=== PATIENT | female | born 1950 | race Caucasian/White ===

== ENCOUNTER 2018-03-24 08:38 | Day surgery (SDC) | payer MEDICARE ==
[~2018-03-24 08:38] MED LIST: EZETIMIBE; INVOKANA300 MG; JANUVIA100 MG PO; SIMVA; TIZANIDINE HCL4 M1 PO; VENLAFAXINE HC100 MG PO
[2018-03-24 11:27] VITALS: BP 171/79
== END 2018-03-24 11:45 | disposition home or self-care (01) ==
LOC: ORM 08:38
PROVIDERS: ATTEND Anesthesiology Pain Medicine
PROC: 3E0U33Z Introduction of Anti-inflammatory into Joints, Percutaneous Approach (ICD-10-PCS; principal; 2018-03-24)
PROC: 3E0U3BZ Introduction of Anesthetic Agent into Joints, Percutaneous Approach (ICD-10-PCS; 2018-03-24)
DX: M54.6 Pain in thoracic spine (principal)

== ENCOUNTER 2018-05-12 06:07 | Day surgery (SDC) | payer MEDICARE ==
[2018-05-12 07:45] VITALS: BP 145/66
== END 2018-05-12 08:10 | disposition home or self-care (01) ==
LOC: ORM 06:07
PROVIDERS: ATTEND Anesthesiology Pain Medicine
PROC: 3E0T33Z Introduction of Anti-inflammatory into Peripheral Nerves and Plexi, Percutaneous Approach (ICD-10-PCS; principal; 2018-05-12)
PROC: 3E0T3BZ Introduction of Anesthetic Agent into Peripheral Nerves and Plexi, Percutaneous Approach (ICD-10-PCS; 2018-05-12)
DX: M46.94 Unspecified inflammatory spondylopathy, thoracic region (principal); M54.6 Pain in thoracic spine

== ENCOUNTER 2018-06-09 06:22 | Day surgery (SDC) | payer MEDICARE ==
[2018-06-09 11:47] VITALS: BP 143/65
== END 2018-06-09 08:48 | disposition home or self-care (01) ==
LOC: ORM 06:22
PROVIDERS: ATTEND Anesthesiology Pain Medicine
PROC: 3E0T3TZ Introduction of Destructive Agent into Peripheral Nerves and Plexi, Percutaneous Approach (ICD-10-PCS; principal; 2018-06-09)
DX: M54.6 Pain in thoracic spine (principal); M12.9 Arthropathy, unspecified

== ENCOUNTER 2018-07-05 09:31 | Emergency (ER) | payer MEDICARE ==
[~2018-07-05] VITALS: Ht 160 cm; Wt 65.0 kg
[2018-07-05] MEDS ORDERED: NABUMETONE500 MG PO (10:03)
[2018-07-05] MEDS ORDERED: VYTORIN1 TA1 PO (10:05)
[2018-07-05] MEDS ORDERED: GLIPIZIDE10 M2 PO (10:07)
[2018-07-05 11:14] LABS: URINE BILIRUBIN - DIPSTICK NEGATIVE (NEGATIVE); URINE BLOOD DIPSTICK TRACE-INTACT (NEGATIVE); URINE COLOR YELLOW; URINE GLUCOSE - DIPSTICK >=1000 mg/dL (NEGATIVE); URINE KETONE NEGATIVE (NEGATIVE); URINE LEUK ESTERASE NEGATIVE (NEGATIVE); URINE NITRITE - DIPSTICK NEGATIVE (Negative); URINE PH 5.5 (4.5-8.0); URINE PROTEIN - DIPSTICK NEGATIVE (NEG-TRACE); URINE SPECIFIC GRAVITY 1.025; URINE UROBILINOGEN - DIPSTICK 0.2 E.U./dL (0.2)
[2018-07-05 11:21] LABS: URINE CLARITY CLEAR
[2018-07-05] MEDS ORDERED: PYRIDIUM200 MG PO (11:30)
[2018-07-05] MEDS ORDERED: BACTRIM DS1 TAB PO (11:30)
[2018-07-05 11:34] VITALS: BP 143/85
== END 2018-07-05 11:34 | disposition home or self-care (01) ==
LOC: ED 09:31
PROVIDERS: Emergency Medicine
DX: N34.2 Other urethritis (principal); E11.51 Type 2 diabetes mellitus with diabetic peripheral angiopathy without gangrene; F17.210 Nicotine dependence, cigarettes, uncomplicated

== ENCOUNTER 2019-05-03 18:13 | Emergency (ER) | payer MEDICARE ==
[~2019-05-03] VITALS: Ht 160 cm; Wt 65.0 kg
[~2019-05-03 18:13] MED LIST changes: +BACTRIM DS1 TAB PO; +GLIPIZIDE10 M2 PO; +NABUMETONE500 MG PO; +PYRIDIUM200 MG PO; +VYTORIN1 TA1 PO
[2019-05-03 18:46] LABS: HEMATOCRIT 41.8 % (37.0-47.0); HEMOGLOBIN 12.7 g/dl (12.0-16.0); IMMATURE GRANULOCYTES 0.3 % (0.0-5.0); MEAN CELL VOLUME 86.5 fL CALC (80.0-100.0); MEAN CORPUSCULAR HGB 26.3 pG CALC (26.0-32.0); MEAN CORPUSCULAR HGB CONC 30.4 g/L CALC (32.0-36.0); NEUT# 6.12 thou/uL (2.00-7.15); RED BLOOD COUNT 4.83 mill/uL (4.20-5.60); RED CELL DISTRI WIDTH 15.7 % (11.5-15.5)
[2019-05-03 19:04] LABS: ALBUMIN 4.3 g/dL (3.2-5.0); ALKALINE PHOSPHATASE 146 u/l (38-126); ANION GAP 15 (6-22 (CALC)); BILIRUBIN, TOTAL 0.4 mg/dL (0.0-1.4); BUN 24 mg/dL (8-23); BUN/CREATININE RATIO 26 (12-20 (CALC)); CARBON DIOXIDE 23 mmol/l (22-30); CHLORIDE 102 mmol/l (95-108); CREATININE 0.9 mg/dL (0.5-1.0); GFR > 60 ML/MIN (>=60 (CALC)); GFR FOR AFR.AMER. > 60 ML/MIN (>=60 (CALC)); LIPASE 164 u/l (23-300); POTASSIUM 4.6 mmol/l (3.5-5.1); SGOT/AST 48 u/l (9-36); SODIUM 135 mmol/l (137-146); TOTAL PROTEIN 7.8 g/dL (6.3-8.2)
[2019-05-03 23:12] LABS: URINE BILIRUBIN - DIPSTICK NEGATIVE (NEGATIVE); URINE BLOOD DIPSTICK MODERATE (NEGATIVE); URINE COLOR YELLOW; URINE GLUCOSE - DIPSTICK NEGATIVE (NEGATIVE); URINE KETONE NEGATIVE (NEGATIVE); URINE LEUK ESTERASE NEGATIVE (NEGATIVE); URINE NITRITE - DIPSTICK NEGATIVE (Negative); URINE PH 5.5 (4.5-8.0); URINE PROTEIN - DIPSTICK NEGATIVE (NEG-TRACE); URINE SPECIFIC GRAVITY <=1.005; URINE UROBILINOGEN - DIPSTICK 0.2 E.U./dL (0.2)
[2019-05-03 23:23] LABS: URINE BACTERIA RARE hpf; URINE WBC 0-2 WBC/hpf (0-5)
[2019-05-03] MEDS ORDERED: ULTRAM50 M1 PO (23:29)
[2019-05-03] MEDS ORDERED: CEPHALEXIN500 M1 PO (23:29)
[2019-05-03 23:40] VITALS: BP 163/68
== END 2019-05-03 23:40 | disposition home or self-care (01) ==
LOC: ED 18:13
PROVIDERS: Emergency Medicine
DX: R10.13 Epigastric pain (principal); N39.0 Urinary tract infection, site not specified; E11.9 Type 2 diabetes mellitus without complications; F17.210 Nicotine dependence, cigarettes, uncomplicated
CPT/HCPCS: Q9967

== ENCOUNTER 2019-06-10 08:13 | Day surgery (SDC) | payer MEDICARE ==
[~2019-06-10] VITALS: Ht 160 cm; Wt 65.8 kg
[~2019-06-10 08:13] MED LIST changes: +ALENDRONATE SOD70 MG PO; +BENZONATATE200 MG PO; +CEPHALEXIN500 M1 PO; +DEBROX6.5 % OT; +HYDROCHLOROT25 MG PO; +INVOKANA300 MG PO; +LEVEMIR FL100 UNIT/M SC; +LEVOTHYROXIN50 MCG PO; +LISINOPRIL2.5 MG PO; +LOPID600 MG PO; +NORVASC10 M1 PO; +OMEPRAZOLE20 MG PO; +SERTRALINE100 MG PO; +ULTRAM50 M1 PO; +ZADITOR0.025 % OU
[2019-06-10] MEDS ORDERED: ALEVE220 M1 PO (08:27)
[2019-06-10] MEDS ORDERED: PERCOCET 10/31 COMBO PO (11:21)
[2019-06-10 12:18] VITALS: BP 118/58
== END 2019-06-10 12:50 | disposition home or self-care (01) ==
LOC: ORM 08:13
PROVIDERS: ATTEND Urology
PROC: 0TBB8ZX Excision of Bladder, Via Natural or Artificial Opening Endoscopic, Diagnostic (ICD-10-PCS; principal; 2019-06-10)
PROC: 0T9780Z Drainage of Left Ureter with Drainage Device, Via Natural or Artificial Opening Endoscopic (ICD-10-PCS; 2019-06-10)
DX: C67.8 Malignant neoplasm of overlapping sites of bladder (principal); C67.1 Malignant neoplasm of dome of bladder; C79.89 Secondary malignant neoplasm of other specified sites; F17.210 Nicotine dependence, cigarettes, uncomplicated; E11.9 Type 2 diabetes mellitus without complications; I10 Essential (primary) hypertension; Z85.3 Personal history of malignant neoplasm of breast
CPT/HCPCS: C1769; J0131; J2710; Q9967

== ENCOUNTER 2019-08-03 11:20 | Emergency (ER) | payer MEDICARE ==
[~2019-08-03] VITALS: Ht 160 cm; Wt 61.0 kg
[~2019-08-03 11:20] MED LIST changes: +ALEVE220 M1 PO; +PERCOCET 10/31 COMBO PO
[2019-08-03 11:55] LABS: HEMATOCRIT 32.3 % (37.0-47.0); HEMOGLOBIN 9.7 g/dl (12.0-16.0); MEAN CELL VOLUME 90.2 fL CALC (80.0-100.0); MEAN CORPUSCULAR HGB 27.1 pG CALC (26.0-32.0); RED BLOOD COUNT 3.58 mill/uL (4.20-5.60); RED CELL DISTRI WIDTH 20.6 % (11.5-15.5)
[2019-08-03 12:03] VITALS: BP 113/56
[2019-08-03 12:10] LABS: PROTHROMBIN TIME 10.7 SECONDS (9.0-12.5)
[2019-08-03 12:14] LABS: CREATININE 1.6 mg/dL (0.5-1.0); POTASSIUM 4.3 mmol/l (3.5-5.1); TOTAL PROTEIN 7.9 g/dL (6.3-8.2)
[2019-08-03 12:15] LABS: BILIRUBIN, TOTAL 0.6 mg/dL (0.0-1.4)
[2019-08-03 12:17] LABS: IMMATURE GRANULOCYTES 12.7 % (0.0-5.0); PLATELET COUNT 620 thou/uL (130-400)
[2019-08-03 12:18] LABS: MANUAL DIFFERENTIAL YES
[2019-08-03 12:26] LABS: BAND 14 % (0-8)
[2019-08-03 12:27] LABS: POLYCHROMASIA FEW
[2019-08-03 12:28] LABS: PLATELET ESTIMATE MOD INCREASE
== END 2019-08-03 12:03 | disposition short-term general hospital (02) ==
LOC: ED 11:20
PROVIDERS: Family Medicine
DX: I63.9 Cerebral infarction, unspecified (principal); R27.0 Ataxia, unspecified; R53.1 Weakness; R29.708 NIHSS score 8; I10 Essential (primary) hypertension; E11.9 Type 2 diabetes mellitus without complications; F17.200 Nicotine dependence, unspecified, uncomplicated; Z79.4 Long term (current) use of insulin
CPT/HCPCS: J2997

== ENCOUNTER 2019-12-01 | Emergency (ER) | payer MEDICARE ==
[2019-12-01 14:08] LABS: URINE BILIRUBIN - DIPSTICK NEGATIVE (NEGATIVE); URINE BLOOD DIPSTICK MODERATE (NEGATIVE); URINE COLOR YELLOW; URINE GLUCOSE - DIPSTICK NEGATIVE (NEGATIVE); URINE KETONE NEGATIVE (NEGATIVE); URINE LEUK ESTERASE TRACE (NEGATIVE); URINE NITRITE - DIPSTICK NEGATIVE (Negative); URINE PH 5.5 (4.5-8.0); URINE PROTEIN - DIPSTICK 30 mg/dL (NEG-TRACE); URINE SPECIFIC GRAVITY 1.025; URINE UROBILINOGEN - DIPSTICK 0.2 E.U./dL (0.2)
[2019-12-01 14:38] LABS: HEMOGLOBIN 9.5 g/dl (12.0-16.0); IMMATURE GRANULOCYTES 1.1 % (0.0-5.0); MEAN CELL VOLUME 91.4 fL CALC (80.0-100.0); MEAN CORPUSCULAR HGB CONC 30.6 g/dL CAL (32.0-36.0); NEUT# 10.07 thou/uL (2.00-7.15); RED BLOOD COUNT 3.39 mill/uL (4.20-5.60); RED CELL DISTRI WIDTH 18.4 % (11.5-15.5)
[2019-12-01 14:54] LABS: URINE RBC 25-50 RBC/hpf (0-5); URINE SQUAMOUS EPITHELIAL CELL FEW EPI/hpf (0-FEW)
[2019-12-01 14:59] LABS: BILIRUBIN, TOTAL 0.8 mg/dL (0.0-1.4); CREATININE 4.2 mg/dL (0.5-1.0); POTASSIUM 5.1 mmol/l (3.5-5.1); TOTAL PROTEIN 7.4 g/dL (6.3-8.2)
== END 2019-12-01 16:05 | disposition left against medical advice (07) ==
PROVIDERS: Family Medicine
DX: I12.0 Hypertensive chronic kidney disease with stage 5 chronic kidney disease or end stage renal disease (principal); E11.22 Type 2 diabetes mellitus with diabetic chronic kidney disease; N18.6 End stage renal disease; F17.210 Nicotine dependence, cigarettes, uncomplicated; Z91.19 Patient's noncompliance with other medical treatment and regimen; Z79.4 Long term (current) use of insulin

== ENCOUNTER 2020-12-17 11:08 | Observation (INO) | payer MEDICARE ==
[~2020-12-17] VITALS: Ht 160 cm; Wt 44.0 kg
--- NOTE | 2020-12-17 11:22 | NUR ---
PATIENT ADMITTED FROM DR. SEGUNDO OFFICE AT THIS TIME. PATIENT ALERT AND ORIENTED AT THIS TIME. PATIENT VERY WEAK AT THIS TIME. PATIENT HAS RIGHT SUBCLAVIAN PORT AND WAS ACCESSED BY NOEMY FISH [employer]ORM GROWER AT THIS TIME. PATIENT STATES SHE FELL AT HOME AND HIT HER LEFT FOREARM AND SKIN TEAR IS NOTED AND AREA CLEANSED AND REDRESSED AT THIS TIME WITH TELFA PAD AND KURLEX . PATIENT ORIENTED TO ROOM AND SURROUNDING AT THIS TIME. AGER OPERATOR DONE SEE INTERVENTIONS LUNG SOUNDS ARE CLEAR AT THIS TIME. PATIENT HAS BOWEL SOUNDS IN ALL FOUR QUADRANTS AND STATED SHE HAD DIARREHA THIS MORNING. PATIENT DENIES ANY PAIN AND HAS NOT EXHIBITED ANY NAUSEA OR VOMITING AT THIS TIME. PATIENT STATES "I'M HUNGRY". PATIENT WAS PLACED ON TELE AND WAS READING SINUS GIOVANNY 59 AT ADMISSION. SIDERAILS ARE UP CALL LIGHT IS WITHIN REACH,.
[2020-12-17 11:26] VITALS: BP 132/65
--- NOTE | 2020-12-17 11:30 | NUR ---
DURING PATIENT SAND TEMPERER DUE TO PATIENTS BLADDER CA SHE HAS A UROSTOMY THAT IS DRAINING CLEAR YELLOW URINE AT THIS TIME. PATIENT STATED THIS WAS PLACE OVER A YEAR AGO DUE TO HER BLADDER CANCER.
[2020-12-17 12:05] LABS: HEMATOCRIT 39.6 % (37.0-47.0); HEMOGLOBIN 11.5 g/dl (12.0-16.0); IMMATURE GRANULOCYTES 0.8 % (0.0-5.0); MEAN CELL VOLUME 101.5 fL CALC (80.0-100.0); MEAN CORPUSCULAR HGB 29.5 pG CALC (26.0-32.0); NEUT# 5.23 thou/uL (2.00-7.15); RED BLOOD COUNT 3.9 mill/uL (4.20-5.60); RED CELL DISTRI WIDTH 15.7 % (11.5-15.5)
[2020-12-17 12:20] LABS: ALBUMIN 3.4 g/dL (3.2-5.0); BILIRUBIN, TOTAL 0.6 mg/dL (0.0-1.4); CREATININE 2.7 mg/dL (0.5-1.0); POTASSIUM 4.5 mmol/l (3.5-5.1); TOTAL PROTEIN 7.5 g/dL (6.3-8.2)
[2020-12-17] MEDS ORDERED: TRAMADOL HYDROC50 M1 PO (14:41)
[2020-12-17] MEDS ORDERED: EXTINA2 % EX (14:42)
[2020-12-17] MEDS ORDERED: XANAX0.25 MG PO (14:42)
[2020-12-17] MEDS ORDERED: LIPITOR40 M1 PO (14:45)
[2020-12-17] MEDS ORDERED: KETOCONAZOLE21 EX (14:45)
[2020-12-17] MEDS ORDERED: LISINOPRIL20 M1 PO (14:46)
[2020-12-17] MEDS ORDERED: NEURONTIN100 MG PO (14:47)
[2020-12-17] MEDS ORDERED: OMEPRAZOLE DR20 MG PO (14:48)
[2020-12-17 14:49] VITALS: BP 153/66
[2020-12-17] MEDS ORDERED: TOPROL XL100 MG PO (14:49)
[2020-12-17] MEDS ORDERED: EUTHYROX50 MCG PO (14:50)
[2020-12-17] MEDS ORDERED: DILTIAZEM HCL180 M1 PO (14:50)
[2020-12-17] MEDS ORDERED: ERGOCALCIF50000 UNIT PO (14:51)
[2020-12-17] MEDS ORDERED: CELEXA10 MG PO (14:51)
--- NOTE | 2020-12-17 16:00 | NUR ---
PATIENT RESTING IN BED AT THIS TIME DENIES ANY PAIN OR VOMITING AT THIS TIME CALL LIGHT IS WITHIN REACH.
[2020-12-17 16:06] LABS: URINE BILIRUBIN - DIPSTICK NEGATIVE (NEGATIVE); URINE BLOOD DIPSTICK TRACE-INTACT (NEGATIVE); URINE CLARITY CLOUDY; URINE COLOR YELLOW; URINE GLUCOSE - DIPSTICK NEGATIVE (NEGATIVE); URINE KETONE NEGATIVE (NEGATIVE); URINE LEUK ESTERASE MODERATE (Negative); URINE NITRITE - DIPSTICK NEGATIVE (Negative); URINE PROTEIN - DIPSTICK 100 mg/dL (NEG-TRACE); URINE SPECIFIC GRAVITY 1.025; URINE UROBILINOGEN - DIPSTICK 0.2 E.U./dL (0.2)
[2020-12-17 16:17] LABS: URINE BACTERIA MANY hpf; URINE SQUAMOUS EPITHELIAL CELL FEW EPI/hpf (0-FEW); URINE WBC 20-50 WBC/hpf (0-5)
[2020-12-17 19:00] VITALS: BP 132/41
--- NOTE | 2020-12-17 20:40 | NUR ---
PT ASSESSMENT COMPLETED AT THIS TIME AND PT MEDICATED ORDERS PROVIDE. PT C/O COUGH, REPORTING THAT SHE HAS HAD IT "SINCE HAVING A SINUS INFECTION A LAST MONTH." PT IS ASKING FOR COUGH DROPS, WILL ASK FOR LOSENGES ORDER. PT DENIES ANY OTHER NEEDS OF ASSISTANCE AT THIS TIME. CALL LIGHT IS AT SIDE AND PT ENCOURAGED TO CALL.
--- NOTE | 2020-12-17 21:23 | NUR ---
PT PROVIDED LOSENGE FOR THROAT IRRITATION/COUGH REQUESTED. NO OTHER S/O DISTRESS NOTED. PT IS AWAKE EATING CRACKERS AND WATCHING TV.
--- NOTE | 2020-12-17 23:39 | NUR ---
TUBING MILL OPERATOR IN W/PT OBTAINING V/S. PT WAS PROVIDED ADDITIONAL BLANKET AT THIS TIME. PT DENIES ANY OTHER NEEDS. CALL LIGHT W/IN REACH. STOOL SAMPLE HAS BEEN COLLECTED THIS SHIFT.
[2020-12-18] VITALS: BP 139/75
--- NOTE | 2020-12-18 01:35 | NUR ---
Pt appears to be sleeping. call light W/in reach.
--- NOTE | 2020-12-18 02:49 | NUR ---
PT APPEARS TO BE SLEEPING, NO S/O DISTRESS NOTED.
[2020-12-18 04:00] VITALS: BP 122/32
--- NOTE | 2020-12-18 05:23 | NUR ---
PT IS SLEEPING, PT CAN BE HEARD COUGHING OFF AND ON WHILE SLEEPING. NO OTHER DISTRESSES OBSERVED. PT AWOKE TO MY VOICE, MEDICATED ORDERS PROVIDE.
[2020-12-18 05:34] LABS: MEAN CELL VOLUME 102.9 fL CALC (80.0-100.0); MEAN CORPUSCULAR HGB 29.8 pG CALC (26.0-32.0); RED BLOOD COUNT 3.15 mill/uL (4.20-5.60); RED CELL DISTRI WIDTH 15.8 % (11.5-15.5)
[2020-12-18 05:47] LABS: HEMATOCRIT 32.4 % (37.0-47.0); HEMOGLOBIN 9.4 g/dl (12.0-16.0)
[2020-12-18 05:50] LABS: CREATININE 2.6 mg/dL (0.5-1.0); MAGNESIUM 1.7 mg/dL (1.6-2.3); POTASSIUM 4.1 mmol/l (3.5-5.1)
--- NOTE | 2020-12-18 06:40 | NUR ---
DAMASCENER REPORTED PT'S ACCU-CHECK SHOWED 79, PT ASSISTED DRINKING A SMALL AMOUNT OF ORANGE JUICE. DENIES ANY OTHER NEEDS AT THIS TIME. CALL LIGHT IS AT SIDE AND PT ENCOURAGED TO CALL.
[2020-12-18 07:20] VITALS: BP 122/59
--- NOTE | 2020-12-18 07:25 | NUR ---
PATIENT LAYING IN BED AT THIS TIME. AWAKE AND ALERT AND ORIENTED X 3 PATIENT STATES SHE HAS NOT HAD ANY NAUSEA OR VOMITING ISSUSE THOUGHOUT THE NIGHT. PATIENT HAS R SUBCLAVIN PORT AND IS RETURING BLOOD. PATIENT UROSOTOMY IS DRAINING CLEAR YELLOW AT THIS TIME. SIDERAILS ARE UP CALL LIGHT IS WITHIN REACH.
--- NOTE | 2020-12-18 09:30 | NUR ---
COVID TEST PREFORMED AT THIS TIME AND SENT TO LAB.
--- NOTE | 2020-12-18 10:45 | NUR ---
DOWN TO CAT SCAN VIA W/C 1100: RETURNED TO HER ROOM AND PLACED IN HER RECLINER BY HER BED WITHOUT INCIDENCE.
[2020-12-18 10:54] VITALS: BP 131/65
--- NOTE | 2020-12-18 11:48 | NUR ---
PATIENT SITTING UP IN CHAIR EATING LUNCH AT THIS TIME. CALL LIGHT WITHIN REACH WELL PERSONAL ITEMS.
[2020-12-18 14:55] VITALS: BP 133/61
--- NOTE | 2020-12-18 15:36 | NUR ---
PATIENT SITTING UP AT BEDSIDE AT THIS TIME. PATIENT'S D/C INSTRUCTIONS GONE OVER WITH PATIENT.PATIENT VERBALIZES UNDERSTANDING AT THIS TIME. PATIENTS PORT DEACCESSED AT THIS TIME. NEEDLE INTACT PORT AREA CLEASNED WITH NORMAL SALINE AND BIO-PATCHED PLACE OVER PORT AND TEGADERM APPLIED. EDUCATED PATIENT TO LEAVE INTACT FOR 24 HOURS. PATIENT VERBALIZES UNDERSTANDING.
--- NOTE | 2020-12-18 18:11 | NUR ---
Discharge instructions given. Patient verbalizes understanding of same. Discharged in condition via Taxi to Home with family. All belongings sent with pt. PATIENT REFUSED TO HAVE HOME HEALTH AT THIS TIME. PATIENT WAS INFORMED THAT SHE HAS 30 DAYS TO CHANGE HER MIND AND IF SHE CHOOSES TO WANTS HOME CARE TO CALL [facility]. NIOCOTINE PATCH REMOVED AT THIS TIME.
== END 2020-12-18 18:10 | disposition home or self-care (01) ==
LOC: MS2 11:08
PROVIDERS: Nurse Practitioner; ADMIT Internal Medicine; ATTEND Internal Medicine
DX: R10.9 Unspecified abdominal pain (principal); R19.7 Diarrhea, unspecified; R53.1 Weakness; M79.605 Pain in left leg; M79.604 Pain in right leg; N17.9 Acute kidney failure, unspecified; I12.9 Hypertensive chronic kidney disease with stage 1 through stage 4 chronic kidney disease, or unspecified chronic kidney disease; E11.22 Type 2 diabetes mellitus with diabetic chronic kidney disease; N18.9 Chronic kidney disease, unspecified; E11.40 Type 2 diabetes mellitus with diabetic neuropathy, unspecified; J44.9 Chronic obstructive pulmonary disease, unspecified; E03.9 Hypothyroidism, unspecified; K21.9 Gastro-esophageal reflux disease without esophagitis; E78.5 Hyperlipidemia, unspecified; F41.9 Anxiety disorder, unspecified; F17.200 Nicotine dependence, unspecified, uncomplicated; Z93.6 Other artificial openings of urinary tract status; Z87.440 Personal history of urinary (tract) infections; Z85.51 Personal history of malignant neoplasm of bladder; Z90.6 Acquired absence of other parts of urinary tract; Z20.822 Contact with and (suspected) exposure to COVID-19
CPT/HCPCS: G0378; G0379

== ENCOUNTER 2020-12-31 16:30 | Inpatient (IN) | payer MEDICARE ==
[~2020-12-31] VITALS: Ht 160 cm; Wt 49.0 kg
[~2020-12-31 16:30] MED LIST changes: +CELEXA10 MG PO; +DILTIAZEM HCL180 M1 PO; +ERGOCALCIF50000 UNIT PO; +EUTHYROX50 MCG PO; +EXTINA2 % EX; +KETOCONAZOLE21 EX; +LIPITOR40 M1 PO; +LISINOPRIL20 M1 PO; +NEURONTIN100 MG PO; +OMEPRAZOLE DR20 MG PO; +TOPROL XL100 MG PO; +TRAMADOL HYDROC50 M1 PO; +XANAX0.25 MG PO
[2020-12-31 18:08] VITALS: BP 125/60
[2020-12-31 18:52] LABS: HEMATOCRIT 34.8 % (37.0-47.0); HEMOGLOBIN 10.1 g/dl (12.0-16.0); IMMATURE GRANULOCYTES 0.4 % (0.0-5.0); MEAN CORPUSCULAR HGB 29.9 pG CALC (26.0-32.0); NEUT# 4.35 thou/uL (2.00-7.15); RED BLOOD COUNT 3.38 mill/uL (4.20-5.60); RED CELL DISTRI WIDTH 15.9 % (11.5-15.5)
[2020-12-31 19:04] LABS: ALBUMIN 3.1 g/dL (3.2-5.0); BILIRUBIN, TOTAL 0.5 mg/dL (0.0-1.4); CREATININE 3.1 mg/dL (0.5-1.0); POTASSIUM 4.1 mmol/l (3.5-5.1); TOTAL PROTEIN 6.8 g/dL (6.3-8.2)
[2020-12-31 20:09] LABS: URINE BILIRUBIN - DIPSTICK NEGATIVE (NEGATIVE); URINE BLOOD DIPSTICK SMALL (NEGATIVE); URINE CLARITY CLOUDY; URINE COLOR YELLOW; URINE GLUCOSE - DIPSTICK NEGATIVE (NEGATIVE); URINE KETONE NEGATIVE (NEGATIVE); URINE LEUK ESTERASE MODERATE (Negative); URINE NITRITE - DIPSTICK NEGATIVE (Negative); URINE PH 7.5 (4.5-8.0); URINE PROTEIN - DIPSTICK 100 mg/dL (NEG-TRACE); URINE UROBILINOGEN - DIPSTICK 0.2 E.U./dL (0.2)
[2020-12-31 20:37] LABS: URINE BACTERIA MANY hpf; URINE SQUAMOUS EPITHELIAL CELL FEW EPI/hpf (0-FEW)
[2021-01-01] VITALS: BP 136/78
[2021-01-01 04:00] VITALS: BP 127/58
[2021-01-01 06:21] LABS: HEMATOCRIT 32.5 % (37.0-47.0); HEMOGLOBIN 9.6 g/dl (12.0-16.0); IMMATURE GRANULOCYTES 0.4 % (0.0-5.0); MEAN CELL VOLUME 101.9 fL CALC (80.0-100.0); MEAN CORPUSCULAR HGB 30.1 pG CALC (26.0-32.0); MEAN CORPUSCULAR HGB CONC 29.5 g/dL CAL (32.0-36.0); NEUT# 4.6 thou/uL (2.00-7.15); RED BLOOD COUNT 3.19 mill/uL (4.20-5.60); RED CELL DISTRI WIDTH 16.1 % (11.5-15.5)
[2021-01-01 06:41] LABS: ALBUMIN 2.7 g/dL (3.2-5.0); BILIRUBIN, TOTAL 0.5 mg/dL (0.0-1.4); CREATININE 2.8 mg/dL (0.5-1.0); POTASSIUM 4.2 mmol/l (3.5-5.1); TOTAL PROTEIN 6.1 g/dL (6.3-8.2)
[2021-01-01 07:27] VITALS: BP 156/65
[2021-01-01 10:42] VITALS: BP 145/59
[2021-01-01 14:40] VITALS: BP 163/66
[2021-01-01 19:00] VITALS: BP 167/66
[2021-01-02] VITALS: BP 122/58
[2021-01-02 04:00] VITALS: BP 135/67
[2021-01-02 05:41] LABS: ALBUMIN 2.4 g/dL (3.2-5.0); CREATININE 2.3 mg/dL (0.5-1.0)
[2021-01-02 05:44] LABS: HEMATOCRIT 29.2 % (37.0-47.0); HEMOGLOBIN 8.4 g/dl (12.0-16.0); MEAN CELL VOLUME 103.9 fL CALC (80.0-100.0); MEAN CORPUSCULAR HGB 29.9 pG CALC (26.0-32.0); MEAN CORPUSCULAR HGB CONC 28.8 g/dL CAL (32.0-36.0); RED BLOOD COUNT 2.81 mill/uL (4.20-5.60); RED CELL DISTRI WIDTH 16.1 % (11.5-15.5)
[2021-01-02 05:46] LABS: CREATININE 2.3 mg/dL (0.5-1.0); MAGNESIUM 1.5 mg/dL (1.6-2.3)
[2021-01-02 07:28] VITALS: BP 148/69
[2021-01-02 10:30] VITALS: BP 147/63
[2021-01-02 19:00] VITALS: BP 165/75
[2021-01-02 20:00] VITALS: BP 160/70
[2021-01-03] VITALS (7 sets, daily range): BP systolic 135–206; BP diastolic 49–77
[2021-01-03 05:44] LABS: HEMATOCRIT 29.9 % (37.0-47.0); HEMOGLOBIN 8.9 g/dl (12.0-16.0); MEAN CORPUSCULAR HGB 30.1 pG CALC (26.0-32.0); MEAN CORPUSCULAR HGB CONC 29.8 g/dL CAL (32.0-36.0); RED BLOOD COUNT 2.96 mill/uL (4.20-5.60); RED CELL DISTRI WIDTH 15.9 % (11.5-15.5)
[2021-01-03 06:00] LABS: CREATININE 1.9 mg/dL (0.5-1.0); POTASSIUM 3.4 mmol/l (3.5-5.1)
[2021-01-03] MEDS ORDERED: ERTAPENEM1 GM IV (12:50)
[2021-01-04] VITALS (8 sets, daily range): BP systolic 125–195; BP diastolic 46–76
[2021-01-04 05:33] LABS: ALBUMIN 2.2 g/dL (3.2-5.0); CREATININE 1.8 mg/dL (0.5-1.0); MAGNESIUM 1.8 mg/dL (1.6-2.3); POTASSIUM 3.9 mmol/l (3.5-5.1)
[2021-01-04] MEDS ORDERED: HYDROCO/APAP1 TA9 PO (08:44)
[2021-01-05 04:00] VITALS: BP 123/58
[2021-01-05 08:00] VITALS: BP 128/68
[2021-01-05 15:15] VITALS: BP 153/68
[2021-01-06 04:00] VITALS: BP 148/71
[2021-01-06 08:00] VITALS: BP 138/70
[2021-01-06 14:57] VITALS: BP 155/74
[2021-01-06 19:00] VITALS: BP 159/56
[2021-01-07 03:50] VITALS: BP 132/57
[2021-01-07 05:20] LABS: HEMATOCRIT 28.3 % (37.0-47.0); HEMOGLOBIN 8.4 g/dl (12.0-16.0); IMMATURE GRANULOCYTES 0.4 % (0.0-5.0); MEAN CELL VOLUME 101.4 fL CALC (80.0-100.0); MEAN CORPUSCULAR HGB 30.1 pG CALC (26.0-32.0); MEAN CORPUSCULAR HGB CONC 29.7 g/dL CAL (32.0-36.0); NEUT# 4.5 thou/uL (2.00-7.15); RED BLOOD COUNT 2.79 mill/uL (4.20-5.60); RED CELL DISTRI WIDTH 17.1 % (11.5-15.5)
[2021-01-07 05:38] LABS: ALBUMIN 2.2 g/dL (3.2-5.0); BILIRUBIN, TOTAL 0.4 mg/dL (0.0-1.4); CREATININE 1.7 mg/dL (0.5-1.0); POTASSIUM 3.4 mmol/l (3.5-5.1); TOTAL PROTEIN 5.1 g/dL (6.3-8.2)
[2021-01-07 07:35] VITALS: BP 159/81
[2021-01-07] MEDS ORDERED: ERTAPENEM1 GM IV (08:54)
[2021-01-07] MEDS ORDERED: ROBITUSSIN200 MG/10 PO (08:54)
[2021-01-07 09:44] VITALS: BP 159/81
== END 2021-01-07 14:18 | disposition home health service (06) | DRG 690 ==
LOC: ED 16:30 → EDSTATUS 17:45 → MS2 17:47
PROVIDERS: Internal Medicine Nephrology; Nurse Practitioner; Nurse Practitioner Family; Physician Assistant; ADMIT Internal Medicine; ATTEND Internal Medicine
DX: N39.0 Urinary tract infection, site not specified (principal); N17.9 Acute kidney failure, unspecified; N18.4 Chronic kidney disease, stage 4 (severe); E87.2 Acidosis; Z16.12 Extended spectrum beta lactamase (ESBL) resistance; Z68.1 Body mass index [BMI] 19.9 or less, adult; R62.7 Adult failure to thrive; E86.9 Volume depletion, unspecified; E86.0 Dehydration; E11.22 Type 2 diabetes mellitus with diabetic chronic kidney disease; I12.9 Hypertensive chronic kidney disease with stage 1 through stage 4 chronic kidney disease, or unspecified chronic kidney disease; K52.9 Noninfective gastroenteritis and colitis, unspecified; J44.9 Chronic obstructive pulmonary disease, unspecified; E11.40 Type 2 diabetes mellitus with diabetic neuropathy, unspecified; D63.1 Anemia in chronic kidney disease; E03.9 Hypothyroidism, unspecified; E87.6 Hypokalemia; R09.89 Other specified symptoms and signs involving the circulatory and respiratory systems; K21.9 Gastro-esophageal reflux disease without esophagitis; N28.89 Other specified disorders of kidney and ureter; E78.5 Hyperlipidemia, unspecified; F41.9 Anxiety disorder, unspecified; F17.200 Nicotine dependence, unspecified, uncomplicated; B96.1 Klebsiella pneumoniae [K. pneumoniae] as the cause of diseases classified elsewhere; Z90.49 Acquired absence of other specified parts of digestive tract; Z20.822 Contact with and (suspected) exposure to COVID-19
CPT/HCPCS: J1335; J2185; J3475; Q5106 EC